=== PATIENT | male | born 1955 | race Caucasian/White ===

== ENCOUNTER 2023-09-11 13:12 | Emergency (ER) | payer OTHER, SELFPAY ==
--- NOTE | ~2023-09-11 | XR_ITS ---
EXAMINATION: XR shoulder RT min 2V DATE: 09/11/2023 13:45 INDICATION: Right shoulder pain. TECHNIQUE: 2 views of right shoulder were obtained. COMPARISON: None. FINDINGS: Bone alignment is normal. No fracture. There is mild acromioclavicular joint osteoarthritis . The glenohumeral joint is not well profiled. IMPRESSION: 1. Mild right acromioclavicular joint osteoarthritis. Reviewed, dictated and finalized at location A.
--- NOTE | ~2023-09-11 | XR_ITS ---
EXAMINATION: XR hand RT min 3V DATE: 09/11/2023 13:45 INDICATION: Right thumb pain. TECHNIQUE: 3 views of right hand were obtained. COMPARISON: None. FINDINGS: Bone alignment is normal. No fracture. There is mild osteoarthritis of triscaphe joint, thi rd distal interphalangeal joint, and first interphalangeal joint. IMPRESSION: 1. Mild polyarticular osteoarthritis. Reviewed, dictated and finalized at location A.
[2023-09-11 13:12] VITALS: BP 175/104; PULSE 68; RESP 14; TEMP 36.7; O2SAT 97
[2023-09-11] MEDS: KETOROLAC 30 MG/ML VIAL (*BKC) IM (13:52)
--- NOTE | 2023-09-11 13:53 | ED.EXTPRO ---
HPI - Extremity Problem General Chief complaint: Extremity Problem,Nontraumatic Stated complaint: right shoulder pain Time Seen by Provider: 09/11/23 13:13 Source: patient and family Mode of arrival: ambulatory Limitations: no limitations History of Present Illness HPI Narrative: this is a 68-year-old male with history of shoulder pain and right thumb pain with no injuries no swelling no warmth or tenderness to the thumb area has no numbness or tingling rates his pain about a 6/10 has been having this pain and discomfort in his shoulder and right thumb for the last several months since July. Has not established with a primary care physician at this point, has tried some [id number] medication with minimal relief has good range of motion in his shoulder and thumb although it is tender and painful with movement. Complaint: extremity pain Onset (ago): month(s) Pain Consistency: intermittent Location: right Severity scale (1-10): 6 Related Data Allergies Allergy/AdvReac Type Severity Reaction Status Date / Time No Known Allergies Allergy Verified 09/11/23 13:21 Review of Systems Review of Systems: All systems reviewed & are unremarkable except as noted in HPI and below PMFSH Past Medical History Medical History Patient denies medical problems Exam Const: General: healthy appearing Nutritional Appearance: well nourished Orientation/consciousness: patient oriented x3 Limitations: no limitations Neck: Neck: normal visual inspection, no lymphadenopathy and no meningeal signs Chest: Chest palpation & inspection: normal inspection of the chest Resp: Effort & Inspection: normal respiratory effort Auscultation: clear to auscultation bilaterally Cardio: Rate: regular rate Rhythm: regular rhythm GI: GI Palp: Yes Soft to palpation Auscultation: normal bowel sounds Skin: General skin exam: normal color Rashes: no rashes Neuro: General: patient oriented x3, moves all extremities, no meningeal signs and no focal motor deficits Extrem: General: normal to inspection and no clubbing, cyanosis or edema Other: tenderness with movement of the right shoulder and right th Psych: Mental Status: mental status grossly normal Course Course Emergency Course: x-ray performed shows osteoarthritis otherwise no acute abnormalities. Patient received IM Toradol 30mg. Vital Signs Vital signs: Vital Signs Temperature 36.7 C 09/11/23 13:12 Pulse Rate 68 09/11/23 13:12 Respiratory Rate 14 09/11/23 13:12 Blood Pressure 175/104 H 09/11/23 13:12 Pulse Oximetry 97 09/11/23 13:12 Oxygen Delivery Room Air 09/11/23 13:12 Temperature 36.7 C 09/11/23 13:12 Pulse Rate 68 09/11/23 13:12 Respiratory Rate 14 09/11/23 13:12 Blood Pressure 175/104 H 09/11/23 13:12 Pulse Oximetry 97 09/11/23 13:12 Oxygen Delivery Room Air 09/11/23 13:12 Critical Care Time Critical Care Time Critical Care Time: No Discharge Plan Discharge Clinical Impression: Osteoarthritis Qualifiers: Osteoarthritis location: unspecified site Osteoarthritis type: unspecified Qualified Code(s): M19.90 - Unspecified osteoarthritis, unspecified site Patient Disposition: Home, Self-Care Condition: Stable Instructions: Antibiotic Form, Osteoarthritis (ED) Additional Instructions: take medicine as prescribed and follow-up with primary care physician within 1 week for further evaluation and treatment. Prescriptions: New meloxicam 15 mg tablet 15 mg PO DAILY Qty: 20 0RF Follow-up/Referrals: Leeroy,Mally Wetzel MD [Primary Care Provider] - Time of Disposition: 14:03
[2023-09-11 14:06] VITALS: BP 168/97; PULSE 68; RESP 20; TEMP 36.7; O2SAT 97
== END 2023-09-11 14:06 | disposition home or self-care (01) ==
PROVIDERS: Emergency Provider Emergency Medicine; PCP Family Medicine
DX: M19.90 Unspecified osteoarthritis, unspecified site (principal); M25.511 Pain in right shoulder; M79.644 Pain in right finger(s)
CPT/HCPCS: 73030; 73130; 96372; 99284; J1885